=== PATIENT | female | born 1980 | race Caucasian/White ===

== ENCOUNTER → 2020-05-05 | Outpatient (CLI) | payer OTHER ==
--- NOTE | 2020-05-05 16:41 | REP ---
INDICATION: KIMBERLY DIAG MAMMO/LEFT BREAST DISCHARGE; LEFT BREAST DISCHARGE. COMPARISON: 04/11/2018. TECHNIQUE: MLO and CC views of bilateral breasts performed with tomosynthesis. Focused left breast ultrasound performed in the retroareolar region. FINDINGS: Scattered moderate fibroglandular tissue is present bilaterally in a fairly symmetrical pattern. Tiny intramammary lymph nodes seen in the upper outer quadrant of the left breast. No suspicious nodule or architectural distortion is seen bilaterally. No clustered microcalcifications are seen bilaterally. Focused left retroareolar ultrasound demonstrates no cystic or solid nodule. The Volpara volumetric breast density pattern is C. IMPRESSION: BIRADS/ACR category 1 negative mammogram. No suspicious mass or clustered microcalcifications. No mammographic or sonographic abnormality in the left retroareolar region in this patient with a history of clear nipple discharge. This patient's Tyrer-Cuzick lifetime breast cancer risk assessment score is 14.8%. This mammogram was interpreted with the aid of an FDA-approved computer-aided detection system. The patient states she had a clinical breast exam in April 2020. The patient letter being requested is M2. RECOMMENDATION: Repeat screening mammography recommended 1 year (for women over 40). <Electronically signed by Ulises Yu > 05/05/20 [id number]
== END ==
LOC: M WHC 13:38
PROVIDERS: ATTEND Student in an Organized Health Care Education/Training Program
DX: N64.52 Nipple discharge (principal)
CPT/HCPCS: 76642; 77066; G0279

== ENCOUNTER → 2020-05-26 | Outpatient (CLI) | payer OTHER ==
[~2020-05-26] MED LIST: E-Z-GAS II EFFERVESCENT PACKET (SODIUM BICARB./CITRIC ACID/SIMETHICONE) As Ordered ONE; E-Z-HD 98% w/w 340GM SUSP BTL As Ordered ONE; E-Z-PAQUE 96% w/w SUSP 176GM BTL As Ordered ONE
--- NOTE | 2020-05-26 13:50 | REP ---
INDICATION: DYSPHAGIA. COMPARISON: None TECHNIQUE: This procedure was performed by Adri Flores [facility], under the direct supervision of Dr. Guerra. Images were reviewed with Dr. Guerra prior to dictation. Liquid barium and gas producing crystals were given in the erect position, as well as liquid barium in the prone oblique position in order to perform a double contrast esophagram examination. FINDINGS: A single view PA chest x-ray is submitted as a insurance writer film. The superior mediastinal structures are midline. The heart size is within normal limits. The lungs are clear. The oral and pharyngeal stages of deglutition were unremarkable. Esophageal transport is prompt and efficient and there is no evidence of esophagitis, stricture, or mucosal ring. There is a small posterior outpouching of the esophagus above the crackle pharyngeal muscle. There is no evidence of a hiatal hernia. There is no gastroesophageal reflux noted . IMPRESSION: Small posterior outpouching of the esophagus just above the cricopharyngeal muscle. 0.1 minutes of fluoroscopy time was utilized for this procedure. Some fluoroscopic images are performed with last image hold technology. These images require no additional radiation. <Electronically signed by Adri Flores > 05/26/20 130 <Electronically signed by Zeyad Guerra > 05/26/20 [id number]
== END ==
LOC: M RAD 09:49
PROVIDERS: ATTEND Specialist
DX: R13.10 Dysphagia, unspecified (principal)

== ENCOUNTER → 2021-07-16 | Outpatient (CLI) | payer OTHER | LOC: M WHC 11:25 | PROVIDERS: ATTEND Family Medicine | DX: Z12.31 Encounter for screening mammogram for malignant neoplasm of breast (principal); Z80.49 Family history of malignant neoplasm of other genital organs ==

== ENCOUNTER → 2021-08-19 | Outpatient (CLI) | payer OTHER ==
[~2021-08-19] MED LIST changes: -E-Z-GAS II EFFERVESCENT PACKET (SODIUM BICARB./CITRIC ACID/SIMETHICONE) As Ordered ONE; -E-Z-HD 98% w/w 340GM SUSP BTL As Ordered ONE; -E-Z-PAQUE 96% w/w SUSP 176GM BTL As Ordered ONE; +PROHANCE 279.3MG/ML 15ML VIAL As Ordered ONE
== END ==
LOC: M RAD 14:26
PROVIDERS: ATTEND Physician Assistant
DX: R51.9 Headache, unspecified (principal)
CPT/HCPCS: 70553; A9576